=== PATIENT | female | born 1990 | race African-American/Black ===

== ENCOUNTER 2022-12-15 11:41 | Observation (INO) ==
[2022-12-15] MEDS ORDERED: NS 1,000 ML IV 1,000 ML IV ONE (14:38)
[2022-12-15 15:23] VITALS: BMI 36.7
--- NOTE | 2022-12-15 15:47 | DR.H&P ---
H&P - History & Physical for Day of: H&P Date: 12/15/22 - Chief Complaint Chief Complaint: NAUSEA, VOMITING, DEHYDRATION, HX CRYSTAL - History of Present Illness History of Present Illness: Patient is a 31 year old female that is a direct admit from Dr. Nassar'wayne secondary to nausea, vomiting and dehydration. Patient reports that symptoms started over the weekend. Reports that she has been "feeling bad" since prior hospitalization for SVT. Was supposed to be scheduled for Injectafer infusion due to iron <10 but has not heard from facility. Reports that she is having weakness and dizziness. Reports occasional chest pain. Complains of "black fingernails". Patient will be admitted for further evaluation and treatment. - Past Medical History Past Medical History: Anxiety, Migraines, SVT - Past Surgical History Surgical History: , Cholecystectomy - Family History Family Medical History: Diabetes Mellitus, Cancer, [place], Hypertension - Social History Does patient currently use any type of tobacco product: Yes Have you used tobacco products in the last 12 months: Yes Type of Tobacco Use: Cigars Alcohol Use: Occasionally Drug Use: None - Review of Systems Constitutional: See HPI Eyes: See HPI ENT: See HPI Respiratory: See HPI Cardiovascular: See HPI Gastrointestinal: See HPI Genitourinary: See HPI Musculoskeletal: See HPI Skin: See HPI Neurological: See HPI - Physical Exam Vital Signs: 12/15/22 15:02 12/15/22 15:25 12/15/22 14:44 Pulse Rhythm [Apical] Regular Pulse Strength [Apical] Normal Respiratory Depth Normal Respiratory Effort Normal Non-Labored Respiratory Pattern Normal Oxygen Delivery Method Room Air Weight 181 lb 14.102 oz 181 lb 14.102 oz Oriented: Normal Eyes: Normal Ear: Normal Nose: Normal Throat: Normal Respiratory: Clear Throughout Cardiovascular: Tachycardia : Normal Auscultation: Bowel Sounds: Normal Palpation: Normal Tenderness: Normal Skin: Decreased Turgur Musculoskeletal: Normal Psychiatric: Agitation Mood Description: Depressed, Anxious Affect: Anxious, Flat Speech Pattern: Clear - Assessment/Plan (1) Nausea and vomiting Status: Acute (2) Dehydration Status: Acute (3) Iron deficiency anemia Status: Acute - Allergies Allergies/Adverse Reactions: Allergies Allergy/AdvReac Type Severity Reaction Status Date / Time No Known Allergies Allergy Verified 12/15/22 14:43 - Medications Home Medications: Home Medications Medication Instructions Recorded Confirmed NK 12/15/22 12/15/22
[2022-12-15 16:01] LABS: BASOPHILS # (AUTO) 0.1 X10^3/uL (0.0-0.1); BASOPHILS % (AUTO) 1.2 % (0.2-1.0); EOSINOPHILS # (AUTO) 0.1 x10^3/uL (0.0-0.2); EOSINOPHILS % (AUTO) 0.9 % (0.9-2.9); HEMATOCRIT 28.7 % (36.0-47.0); HEMOGLOBIN 8.7 g/dL (12.0-16.0); LYMPHOCYTES # (AUTO) 1.9 X10^3/uL (1.3-2.9); LYMPHOCYTES % (AUTO) 33.5 % (21.0-51.0); MEAN CORPUSCULAR HEMOGLOBIN 20.1 pg (27.0-34.0); MEAN CORPUSCULAR HGB CONC 30.2 g/dL (33.0-35.0); MEAN CORPUSCULAR VOLUME 66.5 fL (80.0-100.0); MEAN PLATELET VOLUME 6.7 fL (7.4-11.0); MONOCYTES # (AUTO) 0.6 x10^3/uL (0.3-0.8); MONOCYTES % (AUTO) 10.6 % (0.0-13.0); NEUTROPHILS % (AUTO) 53.8 % (42.0-75.0); PLATELET COUNT 529 X10^3/uL (150.0-450.0); RED BLOOD COUNT 4.31 X10^6/uL (3.5-5.4); RED CELL DISTRIBUTION WIDTH 18.7 % (11.6-16.5); WHITE BLOOD COUNT 5.6 X10^3/uL (3.6-10.0)
[2022-12-15] MEDS: PROTONIX INJ 40 MG VIAL IVP SCH ×2 (16:03→20:38)
[2022-12-15 16:18] LABS: ALANINE AMINOTRANSFERASE 16 Units/L (12-78); ALBUMIN 4.4 g/dL (3.4-5.0); ALKALINE PHOSPHATASE 43 Units/L (46-116); ASPARTATE AMINO TRANSFERASE 10 Units/L (15-37); BLOOD UREA NITROGEN 9 mg/dL (7-18); CALCIUM 8.6 mg/dL (8.5-10.1); CARBON DIOXIDE 28.2 mmol/L (21-32); CHLORIDE 100 mmol/L (98-107); CREATININE 0.68 mg/dL (0.55-1.02); FREE T4 (FREE THYROXINE) 1.04 ng/dL (0.76-1.46); GLUCOSE 83 mg/dL (65-99); POTASSIUM 3.3 mmol/L (3.5-5.1); SODIUM 138 mmol/L (136-145); TOTAL PROTEIN 8.3 g/dL (6.4-8.2); eGFR NON BLACK RACES > 60 (>60)
[2022-12-15 16:36] LABS: PLATELET MORPHOLOGY COMMENT NORMAL (NORMAL)
[2022-12-15 16:37] LABS: ANISOCYTOSIS SLIGHT; HYPOCHROMASIA 2+; MICROCYTOSIS 1+
[2022-12-15 16:38] LABS: TARGET CELLS PRESENT
[2022-12-15 17:05] LABS: IRON 11 ug/dL (50-175)
[2022-12-15] MEDS ORDERED: RESTORIL CAP 15 MG PO PRN (20:36)
[2022-12-15 22:43] LABS: BILIRUBIN,URINE NEGATIVE (NEGATIVE); BLOOD/HEMOGLOBIN,URINE NEGATIVE (NEGATIVE); GLUCOSE, URINE NEGATIVE (NEGATIVE); KETONES,URINE 3+ (NEGATIVE); LEUKOCYTE ESTERASE ,URINE 3+ (NEGATIVE); NITRITES,URINE NEGATIVE (NEGATIVE); PROTEIN,URINE NEGATIVE (NEGATIVE); UROBILINOGEN,URINE 1+ (NORMAL)
[2022-12-15 22:55] LABS: APPEARANCE,URINE CLEAR (CLEAR); BACTERIA,URINE TRACE /HPF (NEGATIVE); COLOR,URINE YELLOW (YELLOW); RBC,URINE 0-2 /HPF (0-3); SQUAMOUS EPITHELIAL CELL,UR FEW /HPF (NEGATIVE); YEAST,URINE FEW /HPF (NEGATIVE)
[2022-12-16] MEDS: NS 1,000 ML IV 1,000 ML IV SCH ×2 (00:32→12:10)
[2022-12-16 06:03] LABS: BASOPHILS # (AUTO) 0.1 X10^3/uL (0.0-0.1); EOSINOPHILS % (AUTO) 0.7 % (0.9-2.9); HEMATOCRIT 25.1 % (36.0-47.0); HEMOGLOBIN 7.7 g/dL (12.0-16.0); LYMPHOCYTES # (AUTO) 1.9 X10^3/uL (1.3-2.9); LYMPHOCYTES % (AUTO) 36.7 % (21.0-51.0); MEAN CORPUSCULAR HEMOGLOBIN 20.4 pg (27.0-34.0); MEAN CORPUSCULAR HGB CONC 30.7 g/dL (33.0-35.0); MEAN CORPUSCULAR VOLUME 66.3 fL (80.0-100.0); MEAN PLATELET VOLUME 6.6 fL (7.4-11.0); MONOCYTES # (AUTO) 0.6 x10^3/uL (0.3-0.8); MONOCYTES % (AUTO) 11.9 % (0.0-13.0); NEUTROPHILS # (AUTO) 2.6 x10^3/uL (2.2-4.8); NEUTROPHILS % (AUTO) 49.7 % (42.0-75.0); PLATELET COUNT 473 X10^3/uL (150.0-450.0); RED BLOOD COUNT 3.79 X10^6/uL (3.5-5.4); RED CELL DISTRIBUTION WIDTH 18.7 % (11.6-16.5); WHITE BLOOD COUNT 5.3 X10^3/uL (3.6-10.0)
[2022-12-16 06:14] LABS: CRYPTOSPORIDIUM PARVUM ANTIGEN NEGATIVE (NEGATIVE); GIARDIA LAMBLIA ANTIGEN NEGATIVE (NEGATIVE)
[2022-12-16 06:18] LABS: ALANINE AMINOTRANSFERASE 15 Units/L (12-78); ALBUMIN 3.8 g/dL (3.4-5.0); ALKALINE PHOSPHATASE 34 Units/L (46-116); ASPARTATE AMINO TRANSFERASE 13 Units/L (15-37); BLOOD UREA NITROGEN 9 mg/dL (7-18); CALCIUM 8.2 mg/dL (8.5-10.1); CARBON DIOXIDE 22.9 mmol/L (21-32); CHLORIDE 103 mmol/L (98-107); CREATININE 0.58 mg/dL (0.55-1.02); GLUCOSE 80 mg/dL (65-99); POTASSIUM 3.4 mmol/L (3.5-5.1); SODIUM 138 mmol/L (136-145); TOTAL PROTEIN 7.1 g/dL (6.4-8.2); eGFR NON BLACK RACES > 60 (>60)
[2022-12-16 06:37] LABS: HYPOCHROMASIA 2+; PLATELET MORPHOLOGY COMMENT NORMAL (NORMAL)
[2022-12-16 06:38] LABS: ANISOCYTOSIS SLIGHT; MICROCYTOSIS 1+; TARGET CELLS PRESENT
[2022-12-16] MEDS ORDERED: K-RIDER 10 MEQ/NS 100 ML 10 MEQ/100 ML BAG IV PRN (07:49)
[2022-12-16] MEDS ORDERED: POTASSIUM CHLORIDE LIQ PO PRN (07:49)
[2022-12-16] MEDS ORDERED: POTASSIUM CHL 40 MEQ/NS 0.45% 500 ML IV PRN (07:49)
[2022-12-16] MEDS ORDERED: KLOR-CON PO PRN (07:49)
[2022-12-16] MEDS ORDERED: K-DUR TAB 20 MEQ PO PRN (07:49)
[2022-12-16] MEDS ORDERED: POTASSIUM CHL 60 MEQ/NS 0.45% 500 ML IV PRN (07:49)
[2022-12-16] MEDS ORDERED: MICRO K EXTEN CAP 10 MEQ PO PRN (07:49)
--- NOTE | 2022-12-16 08:05 | RAD ---
HISTORYN/V, DEHYDRATIONSTUDYCHEST, PA/LAT ADULTCOMPARISONNoneTECHNIQUE2 views of the chestFINDINGSThe cardiac and mediastinal contours are within normal limits. The lungs are clear without focal consolidation or segmental collapse. No pleural effusion or pneumothorax. Soft tissue attenuation limits evaluation.IMPRESSIONNo acute pulmonary process.Electronically signed by: Liath Palacio (Dec 16, 2022 08:03:54)
--- NOTE | 2022-12-16 08:45 | EKG ---
Test Reason : palpitations, hx svt, anemia Blood Pressure : */* mmHG Vent. Rate : 85 BPM Atrial Rate : 85 BPM P-R Int : 156 ms QRS Dur : 70 ms QT Int : 372 ms P-R-T Axes : 43 69 44 degrees QTc Int : 442 ms Normal sinus rhythm Normal ECG No previous ECGs available Confirmed by Shashank Oakley ([id number]) on 12/16/2022 8:41:15 AM Referred By: Confirmed By: Shashank Oakley
[2022-12-16] MEDS ORDERED: INJECTAFER 750 MG in NS 250 ML IV 250 ML IV NR (09:00)
[2022-12-16] MEDS ORDERED: INJECTAFER IV NR (09:00)
[2022-12-16] MEDS ORDERED: NS IV NR (09:00)
[2022-12-16] MEDS ORDERED: XANAX PO PRN (09:17)
[2022-12-16] MEDS: PROTONIX INJ 40 MG VIAL IVP SCH ×2 (09:35→21:13)
[2022-12-16] MEDS: VISTARIL PO SCH ×2 (09:35→21:12)
[2022-12-16] MEDS: MAGNESIUM SULFATE 1 GRAM/100 mL PREMIX 1 G/100 ML BAG IV PRN ×2 (11:54→14:00)
[2022-12-16] MEDS: XANAX PO PRN (14:41)
--- NOTE | 2022-12-16 18:21 | PCM.PROG ---
Progress Note - Progress Note for Day of Date of Exam: 12/16/22 - Subjective Subjective: PT IS 31 BF, DIRECT ADMIT FROM DR GAY OFFICE WITH N/V/D AND DEHYDRATION. PT HAS PMH OF MENORRHAGIA AND IRON DEFICIENCY ANEMIA. PT REPORTS SHE IS UP TO DATE WITH PAP SMEAR AND USES DR VILLAVICENCIO. PTS IRON ON ADMISSION WAS 11. SHE IS GETTING IV IRON INFUSION TODAY. PT CO PALPITATIONS. EKG WAS NSR. PT ALSO HAD ANXIETY AND WE RESUMED SERTRALINE AND STARTED PRN ANTIANXIETY MEDICATION PRN. PLAN TO CONTINUE PPI THERAPY BID, IV HYDRATION AND ORAL HEMOCYTE PLUS THERAPY. OCCULT STOOL NEGATIVE AT THIS TIME. WILL REPEAT AM CBC. - Past Medical Family Social History Past Med/Fam/Surg Hx: No changes since H&P Allergies: Allergies No Known Allergies Allergy (Verified 12/15/22 14:43) - Review of Systems ROS: No change since H&P - Vital Signs and I&O's Vital Signs: Vital Signs Temperature 99.6 F Temperature 99.0 F Pulse Rate [Brachial] 97 Pulse Rate [Brachial] 95 Respiratory Rate 18 Respiratory Rate 18 Blood Pressure [Left Arm] 131/65 Blood Pressure [Left Arm] 136/91 O2 Sat by Pulse Oximetry 99 O2 Sat by Pulse Oximetry 98 12/16/22 16:00 Temperature 99.6 F Temperature Source Oral Pulse Rate [Brachial] 97 H Pulse Assessment Method [Brachial] Dinamap Respiratory Rate 18 O2 Sat by Pulse Oximetry 99 Oxygen Delivery Method Room Air Blood Pressure [Left Arm] 131/65 Blood Pressure Mean [Left Arm] 87 Blood Pressure Source [Left Arm] Automatic Cuff Blood Pressure Position [Left Arm] Semi De La Cruz's Intake and Output: Intake & Output 12/14/22 12/15/22 12/16/22 12/17/22 11:59 11:59 11:59 11:59 Intake Total 1180 / 1180 900 / 900 Balance 1180 / 1180 900 / 900 - Physical Exam Oriented: Normal Eyes: Normal Ear: Normal Nose: Normal Throat: Normal Respiratory: Normal Cardiovascular: Tachycardia : Normal Auscultation: Bowel Sounds: Normal Tenderness: Normal Skin: Decreased Turgur Musculoskeletal: Normal Psychiatric: Agitation Mood Description: Depressed, Anxious Affect: Anxious, Flat Speech Pattern: Clear, Appropriate - Laboratory and Diagnostics Result Diagrams: 12/16/22 05:34 12/16/22 05:34 Labs: 12/16/22 05:33 Stool - Final Laboratory WBC 5.3 X10^3/uL (3.6-10.0) 12/16/22 05:34 RBC 3.79 X10^6/uL (3.5-5.4) 12/16/22 05:34 Hgb 7.7 g/dL (12.0-16.0) L 12/16/22 05:34 Hct 25.1 % (36.0-47.0) L 12/16/22 05:34 MCV 66.3 fL (80.0-100.0) L 12/16/22 05:34 MCH 20.4 pg (27.0-34.0) L 12/16/22 05:34 MCHC 30.7 g/dL (33.0-35.0) L 12/16/22 05:34 RDW 18.7 % (11.6-16.5) H 12/16/22 05:34 Plt Count 473 X10^3/uL (150.0-450.0) H 12/16/22 05:34 Plt Count Comment Increased (ADEQUATE) A 12/16/22 05:34 MPV 6.6 fL (7.4-11.0) L 12/16/22 05:34 Neut % (Auto) 49.7 % (42.0-75.0) 12/16/22 05:34 Lymph % (Auto) 36.7 % (21.0-51.0) 12/16/22 05:34 [place] % (Auto) 11.9 % (0.0-13.0) 12/16/22 05:34 Eos % (Auto) 0.7 % (0.9-2.9) L 12/16/22 05:34 Baso % (Auto) 1.0 % (0.2-1.0) 12/16/22 05:34 Neut # (Auto) 2.6 x10^3/uL (2.2-4.8) 12/16/22 05:34 Lymph # (Auto) 1.9 X10^3/uL (1.3-2.9) 12/16/22 05:34 [place] # (Auto) 0.6 x10^3/uL (0.3-0.8) 12/16/22 05:34 Eos # (Auto) 0.0 x10^3/uL (0.0-0.2) 12/16/22 05:34 Baso # (Auto) 0.1 X10^3/uL (0.0-0.1) 12/16/22 05:34 Absolute Nucleated RBC 0.1 /100WBC 12/16/22 05:34 Plt Morphology Comment Normal (NORMAL) 12/16/22 05:34 RBC Morphology Abnormal (NORMAL) A 12/16/22 05:34 Hypochromasia 2+ A 12/16/22 05:34 Anisocytosis Slight A 12/16/22 05:34 Microcytosis 1+ A 12/16/22 05:34 Target Cells Present 12/16/22 05:34 Sodium 138 mmol/L (136-145) 12/16/22 05:34 Corrected Sodium TNP 12/16/22 05:34 Potassium 3.4 mmol/L (3.5-5.1) L 12/16/22 05:34 Chloride 103 mmol/L (98-107) 12/16/22 05:34 Carbon Dioxide 22.9 mmol/L (21-32) 12/16/22 05:34 BUN 9 mg/dL (7-18) 12/16/22 05:34 Creatinine 0.58 mg/dL (0.55-1.02) 12/16/22 05:34 Est GFR (MDRD) Af Amer > 60 (>60) 12/16/22 05:34 Est GFR (MDRD) Non-Af > 60 (>60) 12/16/22 05:34 Glucose 80 mg/dL (65-99) 12/16/22 05:34 Calcium 8.2 mg/dL (8.5-10.1) L 12/16/22 05:34 Corrected Calcium TNP 12/16/22 05:34 Magnesium 1.8 mg/dL (2.0-2.9) L 12/16/22 05:34 Iron 11 ug/dL (50-175) L 12/15/22 15:37 Total Bilirubin 0.30 mg/dL (0.2-1.0) 12/16/22 05:34 AST 13 Units/L (15-37) L 12/16/22 05:34 ALT 15 Units/L (12-78) 12/16/22 05:34 Alkaline Phosphatase 34 Units/L (46-116) L 12/16/22 05:34 Total Protein 7.1 g/dL (6.4-8.2) 12/16/22 05:34 Albumin 3.8 g/dL (3.4-5.0) 12/16/22 05:34 Globulin 3.3 g/dL (2.5-4.5) 12/16/22 05:34 Albumin/Globulin Ratio 1.2 Ratio (1.1-2.1) 12/16/22 05:34 Free T4 1.04 ng/dL (0.76-1.46) 12/15/22 15:37 TSH 3rd Generation 1.390 uIU/mL (0.358-3.74) 12/15/22 15:37 Specimen Type Clean catch urine 12/15/22 22:31 Urine Color Yellow (YELLOW) 12/15/22 22:31 Urine Appearance Clear (CLEAR) 12/15/22 22:31 Urine pH 8.0 (5.0 - 8.0) 12/15/22 22:31 Ur Specific [place] 1.015 (1.000-1.030) 12/15/22 22:31 Urine Protein Negative (NEGATIVE) 12/15/22 22:31 Urine Glucose (UA) Negative (NEGATIVE) 12/15/22 22:31 Urine Ketones 3+ (NEGATIVE) 12/15/22 22:31 Urine Blood Negative (NEGATIVE) 12/15/22 22:31 Urine Nitrite Negative (NEGATIVE) 12/15/22 22:31 Urine Bilirubin Negative (NEGATIVE) 12/15/22 22:31 Urine Urobilinogen 1+ (NORMAL) 12/15/22 22:31 Ur Leukocyte Esterase 3+ (NEGATIVE) 12/15/22 22:31 Urine RBC 0-2 /HPF (0-3) 12/15/22 22:31 Urine WBC 3-5 /HPF (0-5) 12/15/22 22:31 Ur Squamous Epith Cells Few /HPF (NEGATIVE) 12/15/22 22:31 Urine Bacteria Trace /HPF (NEGATIVE) 12/15/22 22:31 Urine Yeast Few /HPF (NEGATIVE) 12/15/22 22:31 Ur Culture Indicated? Yes/culture set up 12/15/22 22:31 Stl Occult Blood (IFOB) Negative (NEGATIVE) 12/16/22 05:33 Stl C. diff Tox B Gene Negative (NEGATIVE) 12/16/22 05:33 Stl C. diff [id number] Presumptive negative (NEGATIVE) 12/16/22 05:33 Cryptosporid parvum Ag Negative (NEGATIVE) 12/16/22 05:33 Giardia lamblia Ag Negative (NEGATIVE) 12/16/22 05:33 - Plan (1) Dehydration Status: Acute Plan: GENTLE IV HYDRATION, IRON REPLACEMENT THERAPY. RESTART ANXIETY MEDICATION. EKG, REPEAT AM LABS (2) Anxiety Status: Acute (3) Depression Status: Acute (4) Nausea and vomiting Status: Acute (5) Iron deficiency anemia Status: Acute
[2022-12-16] MEDS: ZOLOFT PO SCH (19:43)
[2022-12-17] MEDS: NS 1,000 ML IV 1,000 ML IV SCH (03:26)
[2022-12-17] MEDS: VISTARIL PO SCH ×2 (03:29→09:11)
[2022-12-17 05:10] LABS: BASOPHILS # (AUTO) 0.1 X10^3/uL (0.0-0.1); EOSINOPHILS % (AUTO) 0.2 % (0.9-2.9); HEMOGLOBIN 7.6 g/dL (12.0-16.0); LYMPHOCYTES # (AUTO) 1.8 X10^3/uL (1.3-2.9); LYMPHOCYTES % (AUTO) 33.1 % (21.0-51.0); MEAN CORPUSCULAR HEMOGLOBIN 20.5 pg (27.0-34.0); MEAN CORPUSCULAR HGB CONC 30.6 g/dL (33.0-35.0); MEAN PLATELET VOLUME 6.8 fL (7.4-11.0); MONOCYTES # (AUTO) 0.7 x10^3/uL (0.3-0.8); MONOCYTES % (AUTO) 13.1 % (0.0-13.0); NEUTROPHILS # (AUTO) 2.9 x10^3/uL (2.2-4.8); NEUTROPHILS % (AUTO) 52.6 % (42.0-75.0); PLATELET COUNT 498 X10^3/uL (150.0-450.0); RED BLOOD COUNT 3.73 X10^6/uL (3.5-5.4); RED CELL DISTRIBUTION WIDTH 18.8 % (11.6-16.5); WHITE BLOOD COUNT 5.5 X10^3/uL (3.6-10.0)
[2022-12-17 05:27] LABS: ALANINE AMINOTRANSFERASE 12 Units/L (12-78); ALBUMIN 3.7 g/dL (3.4-5.0); ALKALINE PHOSPHATASE 31 Units/L (46-116); ASPARTATE AMINO TRANSFERASE 11 Units/L (15-37); BLOOD UREA NITROGEN 6 mg/dL (7-18); CALCIUM 8.1 mg/dL (8.5-10.1); CARBON DIOXIDE 21.9 mmol/L (21-32); CHLORIDE 104 mmol/L (98-107); CREATININE 0.55 mg/dL (0.55-1.02); GLUCOSE 76 mg/dL (65-99); MAGNESIUM 2.1 mg/dL (2.0-2.9); POTASSIUM 3.6 mmol/L (3.5-5.1); SODIUM 140 mmol/L (136-145); TOTAL PROTEIN 7.1 g/dL (6.4-8.2); eGFR NON BLACK RACES > 60 (>60)
[2022-12-17 05:40] LABS: ANISOCYTOSIS SLIGHT; HYPOCHROMASIA 2+; MICROCYTOSIS 1+; PLATELET MORPHOLOGY COMMENT NORMAL (NORMAL); POIKILOCYTOSIS 1+
[2022-12-17 05:41] LABS: OVALOCYTES SLIGHT; TARGET CELLS SLIGHT; TEAR DROP CELLS SLIGHT
[2022-12-17] MEDS ORDERED: PHARMACY CONSULT - POTASSIUM & MAGNESIUM XX SCH (06:00)
[2022-12-17] MEDS ORDERED: K-DUR TAB 20 MEQ PO ONE (08:00)
[2022-12-17] MEDS ORDERED: NS 500 ML IV 500 ML IV ONE (08:19)
[2022-12-17] MEDS ORDERED: TYLENOL 325 MG TAB PO PRN (08:19)
[2022-12-17] MEDS ORDERED: BENADRYL INJ 50 MG VIAL IVP PRN (08:19)
[2022-12-17 08:22] VITALS: O2SAT 100
[2022-12-17] MEDS ORDERED: HEMOCYTE-PLUS PO SCH (09:00)
[2022-12-17] MEDS: PROTONIX INJ 40 MG VIAL IVP SCH (09:11)
[2022-12-17] MEDS: ZOLOFT PO SCH (09:11)
[2022-12-17] MEDS: XANAX PO PRN (09:15)
[2022-12-17 13:32] VITALS: BP 159/87; PULSE 75; RESP 16; TEMP 98.8
== END 2022-12-17 13:30 | disposition home or self-care (01) ==
LOC: MED/SURG
PROVIDERS: ADMIT Internal Medicine; ATTEND Internal Medicine